=== PATIENT | female | born 1940 | race Caucasian/White ===

== ENCOUNTER 2022-06-30 08:09 | Emergency (ER) | payer MEDICARE, OTHER ==
--- NOTE | 2022-06-30 08:12 | ERPHSYRPT ---
- History of Present Illness Time Seen by Provider: 06/30/22 08:12 Source: patient, family Exam Limitations: no limitations Physician History: This is an 82-year-old white female patient who got up in the middle of the night this morning and stubbed her right foot/toes on a chair. The lights were not on. Specifically, she states that the right fourth toe is hurting the worst. Patient cannot bear weight but it hurts to do so. Patient does not have a physical damage appraiser that she sees. This patient's medical issues include gastroesophageal reflux disease, hypertension and hypothyroidism. Method of Injury: direct blow Occurred: this morning Quality: constant, aching Severity of Pain-Max: mild (Moderate) Severity of Pain-Current: mild (To moderate) Lower Extremities Pain: foot: right, 4th toe: right Modifying Factors: Improves With: movement Associated Symptoms: other (Can bear weight but hurts to do so) Allergies/Adverse Reactions: nitrofurantoin [From Macrobid] Adverse Reaction (Verified 06/30/22 08:19) Sulfa (Sulfonamide Antibiotics) Adverse Reaction (Verified 06/30/22 08:19) Home Medications: Anastrozole [Arimidex] 1 mg PO DAILY 06/30/22 [History] Levothyroxine Sodium 1 ea DAILY 06/30/22 [History] Meloxicam 1 ea DAILY 06/30/22 [History] Metoprolol Tartrate 25 mg [Lopressor 25MG Tab] 25 mg PO DAILY 06/30/22 [History] Sertraline HCl [Zoloft] 100 mg PO DAILY 06/30/22 [History] Travel Risk - International Travel Have you traveled outside of the country in past 3 weeks: No - Coronavirus Screening Are you exhibiting any of the following symptoms?: No Close contact with a COVID-19 positive Pt in past 14-21 Days: No - Review of Systems Constitutional: No Symptoms Eyes: No Symptoms Ears, Nose, & Throat: No Symptoms Respiratory: No Symptoms Cardiac: No Symptoms Abdominal/Gastrointestinal: No Symptoms Genitourinary Symptoms: No Symptoms Musculoskeletal: Injury (Right foot/toesfourth toe hurts the worst) Skin: No Symptoms Neurological: No Symptoms Psychological: No Symptoms Endocrine: No Symptoms Hematologic/Lymphatic: No Symptoms - Past Medical History Neurological History: No Pertinent History Cardiac History: Hypertension Respiratory History: No Pertinent History Endocrine Medical History: No Pertinent History Other Medical History: 15 YEARS AGO HAD SIMILAR W/ VERITGO WHICH RESOLVED ON ITS OWN. - Nursing Vital Signs Nursing Vital Signs: Initial Vital Signs Temperature 97.0 F 06/30/22 08:29 Pulse Rate 54 L 06/30/22 08:29 Respiratory Rate 18 06/30/22 08:29 Blood Pressure 167/88 06/30/22 08:29 O2 Sat by Pulse Oximetry 100 06/30/22 08:29 Pain Scale Pain Intensity 8 - Physical Exam General Appearance: no apparent distress, alert, anxiety Eyes, Ears, Nose, Throat Exam: normal ENT inspection, moist mucous membranes Neck Exam: normal inspection, non-tender, supple, full range of motion Cardiovascular/Respiratory Exam: chest non-tender, no respiratory distress Gastrointestinal/Abdominal Exam: non-tender Back Exam: normal inspection, normal range of motion, No CVA tenderness, No vertebral tenderness Hips Exam: bilateral: non-tender, normal inspection, normal range of motion, no evidence of injury Legs Exam: bilateral leg: non-tender, normal inspection, normal range of motion, no evidence of injury Knees Exam: bilateral knee: non-tender, normal inspection, normal range of motion, no evidence of injury Ankle Exam: bilateral ankle: non-tender, normal inspection, normal range of motion, no evidence of injury Foot Exam: right foot: bone tenderness (Fourth toe), soft tissue tenderness (Fourth toe), left foot: non-tender, normal inspection, normal range of motion, no evidence of injury Neuro/Tendon Exam: normal sensation, normal motor functions, normal tendon functions Mental Status Exam: alert, oriented x 3, cooperative Skin Exam: normal color, warm, dry SpO2 Interpretation: normal O2 Delivery: Room Air Ordered Tests: Active Orders 24 hr Category Date Time Status FOOT (MINIMUM 3 VIEWS) Stat Exams 06/30/22 08:27 Completed - Progress Progress: unchanged Progress Note: 06/30/22 08:36 This patient's medical issue is 1 of low complexity. The level of complexity and the work-up performed is based on review of the past medical history, review of the medication list, review of the drug allergy list, history of present illness, physical findings on examination. The work-up performed on this patient is x-ray of the right foot. We are awaiting the results of/impression from the radiologist. 06/30/22 08:56 The x-ray of the right foot was read by the radiologist. I reviewed the impression. There is mild first tarsalmetatarsal degenerative changes. No acute fracture or dislocation. Patient will be discharged to home with instructions to soak the right foot in ice water 2-3 times a day for the next 48 hours. She can use Tylenol and ibuprofen for pain control. If her pain persist she can follow-up in Dr. Berrios (podiatry) office. We provided the patient with a phone number to call the office Counseled pt/family regarding: diagnosis, need for follow-up, rad results Medical Desision Making - Discussion of managment Agreed on:: Treatment plan, need for follow-up - Diagnostic Testing Diagnostic test were ordered, analyzed, and reviewed by me: Yes Radiological Interpretation: Reviewed by me, Teleradiologist Report - Risk of complications Low Risk: Low risk of morbidity from additional dx testing or treatment - Departure Departure Disposition: Home Clinical Impression: Foot pain, Toe pain, right Condition: Stable Critical Care Time: No Referrals: SARA GARAY NP [NON-STAFF PHY W/O PRIVILEGES] - Follow up/PCP as directed Additional Instructions: Ice bath 2-3 times a day for the next 48 hours. Use Tylenol and ibuprofen for pain control if there are no contraindications. Follow-up in Dr. Berrios's office (physical damage appraiser) if pain persist beyond [address] Berrios's pamphlet provided to you with his phone number on it. Weightbearing as tolerated.
--- NOTE | 2022-06-30 08:45 | XRAY ---
Indication: Pain following injury. Comparison: None 3 nonweightbearing views right foot demonstrates mild 1st tarsometatarsal degenerative changes. No other bony, articular, or soft tissue abnormalities.
[2022-06-30 09:17] VITALS: BP 164/86; PULSE 78; O2SAT 98
== END 2022-06-30 09:16 | disposition home or self-care (01) ==
LOC: ED 08:09
DX: M79.674 Pain in right toe(s) (principal); M79.671 Pain in right foot; I10 Essential (primary) hypertension; Z79.899 Other long term (current) drug therapy
CPT/HCPCS: 73630; 99282